=== PATIENT | female | born 1930 | race Hispanic/Latino ===

== ENCOUNTER 2016-12-25 13:33 | Emergency (ER) | payer MEDICARE ==
[2016-12-25 13:34] VITALS: BMI 28.3
[2016-12-25 13:53] VITALS: TEMP 98.8
[2016-12-25] MEDS ORDERED: Ampicillin/Sulbactam 3 GM in Sodium Chloride 0.9% 100 ML IVPB STA (14:21)
--- NOTE | 2016-12-25 14:23 | ED PDOC ---
Arrival/HPI - General Chief Complaint: Trauma Time Seen by Provider: 12/25/16 13:53 Historian: Patient, Family - History of Present Illness Narrative History of Present Illness (Text): 12/25/16 14:10 Real Montoya is an 86 year old female, whose past medical history includes hypertension, hyperlipidemia, and anemia, who presents to the emergency department accompanied with her daughter, with complaints of a possible infection to the left knee and right shoulder pain after a mechanical fall ten days ago. Denies head injury or LOC or neck pain. Days later, the blisters that had appeared in her right knee were popped by the patient with a needle. daughter reports noting signs of infection worsening three days ago. Denies f/c , n/v, shortness of breath, chest pain. PMD: Dr. Kaur Time/Duration: > week (10 days ago) Symptom Onset: Gradual Symptom Course: Worsening Context: Tripped Associated Symptoms (Text): right shoulder pain with movement, right knee pain, left knee bruising, lightheaded Past Medical History - Provider Review Nursing Documentation Reviewed: Yes - Travel History If Yes, travel location?: [place] - Infectious Disease Hx of Infectious Diseases: None - Reproductive Menopause: Yes - Cardiac Hx Cardiac Disorders: Yes (HTN, High Chol) - Hematological/Oncological Hx Anemia: Yes - Musculoskeletal/Rheumatological Hx Falls: No - Psychiatric Hx Depression: No Hx Emotional Abuse: No Hx Physical Abuse: No Hx Substance Use: No - Past Surgical History Past Surgical History: No Previous - Anesthesia Hx Anesthesia: No - Suicidal Assessment Feels Threatened In Home Enviroment: No Family/Social History - Physician Review Nursing Documentation Reviewed: Yes Family/Social History: Other (non-contributory ) Smoking Status: Never Smoked Hx Alcohol Use: No Hx Substance Use: No Allergies/Home Meds Allergies/Adverse Reactions: Allergies No Known Allergies Allergy (Verified 12/25/16 13:53) Home Medications: Home Meds Medication Instructions Recorded Confirmed Alprazolam [Xanax] 0.25 mg PO BID 12/25/16 12/25/16 Benzonatate [Tessalon Perles] 100 mg PO TID 12/25/16 12/25/16 Lisinopril [Zestril] 10 mg PO DAILY 12/25/16 12/25/16 Memantine [Namenda] 10 mg PO DAILY 12/25/16 12/25/16 Metoprolol Succinate [Toprol Xl] 25 mg PO DAILY 12/25/16 12/25/16 amLODIPine [Norvasc] 5 mg PO DAILY 12/25/16 12/25/16 Review of Systems - Review of Systems Constitutional: absent: Fevers Respiratory: absent: SOB, Cough Cardiovascular: absent: Chest Pain Gastrointestinal: absent: Abdominal Pain, Vomiting Musculoskeletal: Other (right shoulder pain and right knee pain with movement ) Skin: Other (bruising on left leg and scattered erythema on right knee) Neurological: Other (lightheaded). absent: Headache, Focal Weakness, Gait Changes Physical Exam Vital Signs Reviewed: Yes Vital Signs Temp Pulse Resp BP Pulse Ox 12/25/16 16:33 50 L 17 157/64 H 98 12/25/16 13:47 98.8 F 56 L 18 140/56 L 99 Temperature: Afebrile Blood Pressure: Hypotensive Pulse: Bradycardic Respiratory Rate: Normal Appearance: Positive for: Well-Appearing, Non-Toxic, Comfortable Pain Distress: None Mental Status: Positive for: Alert and Oriented X 3 - Systems Exam Head: Present: Atraumatic, Normocephalic Pupils: Present: PERRL Neck: Present: Normal Range of Motion. No: MIDLINE TENDERNESS Respiratory/Chest: Present: Clear to Auscultation, Good Air Exchange. No: Respiratory Distress, Accessory Muscle Use Cardiovascular: Present: Regular Rate and Rhythm, Normal S1, S2. No: Murmurs Abdomen: No: Tenderness, Distention, Normal Bowel Sounds, Peritoneal Signs Upper Extremity: Present: Normal ROM (NROM on right shoulder with pain on abduction ) Lower Extremity: Present: Edema (1+ edema that extends down left leg to ankle), NORMAL PULSES, Normal ROM (the pt is able to extend her left knee), Erythema ( 12cm area erythema with scattered abrasion on anterior left leg), Other ( ecchymosis on right anterior knee with NROM) Neurological: Present: GCS=15, Motor Func Grossly Intact, Normal Sensory Function Skin: Present: Warm, Dry Medical Decision Making ED Course and Treatment: 12/25/16 16:16 I disc results w the pt and her daughter and recommended admission for further treatment including IV antibiotics given the extent of her infection. I explained I am concerned it will not be treated as effectively on oral antibiotics and that spread of infection can lead to disability or . However the pt is adamant she does not wish to stay. They will be dc on po abx, follow up w pmd and ortho, and return if worse. - Lab Interpretations Lab Results: 12/25/16 14:30 12/25/16 14:30 Lab Results 12/25/16 14:30: Sodium 143, Potassium 4.8, Chloride 105, Carbon Dioxide 28, Anion Gap 15, BUN 35 H, Creatinine 1.4 H, Est GFR ( Amer) 43, Est GFR ( Non-Af Amer) 35, Random Glucose 93, Calcium 9.6, Total Bilirubin 0.5, AST 58 H, ALT 49, Alkaline Phosphatase 62, Total Protein 7.2, Albumin 3.9, Globulin 3.3, Albumin/Globulin Ratio 1.2 12/25/16 14:30: WBC 7.1, RBC 3.90, Hgb 9.3 L, Hct 29.4 L, MCV 75.4 L, MCH 23.8 L , MCHC 31.6, RDW 14.4, Plt Count 353, MPV 10.1, Gran % 68.2 H, Lymph % (Auto) 20.3 L, [place] % (Auto) 9.3 H, Eos % (Auto) 2.1, Baso % (Auto) 0.1, Gran # 4.83, Lymph # 1.4, [place] # 0.7 H, Eos # 0.2, Baso # 0.01 I have reviewed the lab results: Yes - RAD Interpretation Radiology Orders: 12/25/16 14:20 KNEES BILATERAL [RAD] Stat SHOULDER RIGHT [RAD] Stat Salon Coordinator: Radiologist - Medication Orders Current Medication Orders: Discontinued Medications Ampicillin Sodium/Sulbactam (Sodium 3 gm/ Sodium Chloride) 100 mls @ 100 mls/ hr IVPB STAT STA PRN Reason: Protocol Stop: 12/25/16 15:20 Last Admin: 12/25/16 16:19 Dose: 100 mls/hr eMAR Start Stop Document 12/25/16 16:19 OCS (Rec: 12/25/16 16:20 OCS [id number]) Intravenous Solution Start Date 12/25/16 Start Time 16:00 Ibuprofen (Motrin Tab) 800 mg PO STAT STA Stop: 12/25/16 14:21 Last Admin: 12/25/16 14:43 Dose: 800 mg Trimethoprim/Sulfamethoxazole (Bactrim Ds Tab) 1 tab PO STAT STA PRN Reason: Protocol Stop: 12/25/16 16:17 Last Admin: 12/25/16 16:21 Dose: 1 tab - Scribe Statement The provider has reviewed the documentation as recorded by the Christieibe Mirna Valero Provider Scribe Attestation: All medical record entries made by the Scribe were at my direction and personally dictated by me. I have reviewed the chart and agree that the record accurately reflects my personal performance of the history, physical exam, medical decision making, and the department course for this patient. I have also personally directed, reviewed, and agree with the discharge instructions and disposition. Disposition/Present on Arrival - Present on Arrival Any Indicators Present on Arrival: No History of DVT/PE: No History of Uncontrolled Diabetes: No Urinary Catheter: No History of Decub. Ulcer: No History Surgical Site Infection Following: None - Disposition Have Diagnosis and Disposition been Completed?: Yes Diagnosis: Cellulitis of leg, Quadriceps tendon rupture Disposition: HOME/ ROUTINE Disposition Time: 16:51 Condition: STABLE Discharge Instructions (ExitCare): Cellulitis (ED) Additional Instructions: Please follow up with your doctor and also with the lead generation specialist. Return to the ER for any worsening symptoms, fever, or for any other concerns. Prescriptions: Cephalexin [cephalexin] 500 mg PO QID #40 cap Sulfamethoxazole/Trimethoprim [Bactrim DS 800 mg-160 mg] 1 tab PO BID #20 tab Referrals: Julio C Anders MD [Staff Provider] - Follow up with primary Forms: [employer] (Slovenian)
[2016-12-25 14:54] LABS: ALB/GLOB RATIO 1.2 (1.1-1.8); BILIRUBIN,TOTAL 0.5 mg/dL (0.2-1.3); CALCIUM 9.6 mg/dL (8.4-10.5); POTASSIUM 4.8 mmol/L (3.6-5.0); TOTAL PROTEIN 7.2 g/dL (5.8-8.3)
[2016-12-25 14:59] LABS: BASO # 0.01 K/mm3 (0.0-2.0); BASO % 0.1 % (0.0-3.0); EOS # 0.2 (0.0-0.7); EOS % 2.1 % (1.5-5.0); GRAN # 4.83 (1.4-6.5); GRAN % 68.2 % (50.0-68.0); HEMATOCRIT 29.4 % (36.0-48.0); LYMPH # 1.4 (1.2-3.4); LYMPH % 20.3 % (22.0-35.0); MEAN CELL VOLUME 75.4 fl (80.0-105.0); MEAN CORPUSCULAR HEMOGLOBIN 23.8 pg (25.0-35.0); MEAN CORPUSCULAR HGB CONC 31.6 g/dl (31.0-37.0); MEAN PLATELET VOLUME 10.1 fl (7.0-11.0); MONO # 0.7 (0.1-0.6); MONO % 9.3 % (1.0-6.0); RED CELL DISTRIBUTION WIDTH 14.4 % (11.5-14.5); WHITE BLOOD COUNT 7.1 10^3/ul (4.5-11.0)
--- NOTE | 2016-12-25 16:02 | RAD ---
PROCEDURE: Bilateral Knee Radiographs. HISTORY: fall pain COMPARISON: None. FINDINGS: BONES: Right Knee: Normal. No fracture. Left Knee: Normal. No fracture. JOINTS: Right Knee: Normal. No osteoarthritis. Left knee: Normal. No osteoarthritis. SOFT TISSUES: Right Knee: Normal. Left Knee: There is some separation of the quadriceps tendon from the patella consistent with a tear. Clinical correlation is suggested. There is also soft tissue swelling anterior to the patellar tendon JOINT EFFUSION: Right Knee: None. Left Knee: None. OTHER FINDINGS: None. IMPRESSION: Left knee. There is some separation of the quadriceps tendon from the patella consistent with a tear. Clinical correlation is suggested. There is also soft tissue swelling anterior to the patellar tendon
--- NOTE | 2016-12-25 16:03 | RAD ---
PROCEDURE: Radiographs of the Right Shoulder HISTORY: fall pain COMPARISON: No prior. FINDINGS: BONES: Normal. No fracture. JOINTS: Normal. Glenohumeral and acromioclavicular joints preserved. No osteoarthritis. SOFT TISSUES: Normal. OTHER FINDINGS: None. IMPRESSION: Normal radiographs of the right shoulder.
[2016-12-25] MEDS ORDERED: Tmp-Smz 800 mg-160 mg DS Tab PO STA (16:16)
[2016-12-25 16:34] VITALS: BP 157/64; PULSE 50; RESP 17; O2SAT 98
== END 2016-12-25 16:57 | disposition home or self-care (01) ==
LOC: ED 13:33
DX: L03.116 Cellulitis of left lower limb (principal); S76.112A Strain of left quadriceps muscle, fascia and tendon, initial encounter; W01.0XXA Fall on same level from slipping, tripping and stumbling without subsequent striking against object, initial encounter; E78.5 Hyperlipidemia, unspecified; I10 Essential (primary) hypertension
CPT/HCPCS: 73030; 73560; 80053; 85025; 96374; 99283; J0295

== ENCOUNTER 2017-01-09 18:03 | Inpatient (IN) | payer MEDICARE ==
[2017-01-09 18:05] VITALS: BMI 27.4
[2017-01-09] MEDS ORDERED: guaiFENesin DM 100 mg-10 mg/5 ml UD PO STA (18:25)
[2017-01-09] MEDS ORDERED: cefTRIAXone 1 gm 1 GM/100 ML BAG IVPB STA (18:33)
[2017-01-09] MEDS ORDERED: Azithromycin 500MG/NS 250ml 500 MG/250 ML BAG IVPB STA (18:33)
--- NOTE | 2017-01-09 18:38 | ED PDOC ---
Arrival/HPI - General Chief Complaint: Cough, Cold, Congestion Time Seen by Provider: 01/09/17 18:04 - History of Present Illness Narrative History of Present Illness (Text): CC: Cough, productive x1week, fevers/chills, decreased appetite This patient is an 86yo F who is coming to the hospital wit the above complaints. States she has a cough that will not go away, decreased appetite, and fever/chills. Was treated recently for cellulitis, which the Emergency department physician believed required admission but the patient refused, and took PO antibiotics (Keflex and bactrim). Yesterday, she went to her PMD who gave her Augmentin for her cough. For 2 days, the patient has also had watery diarrhea, non bloody, 6 times per day since she has been on the antibiotics. The patient denies any urinary frequency/urgency. Admits to fevers/chills, and decreased appetite. Denies shortness of breath, abdominal pain, dysuria/freq/urg , or lower extremity swelling. Past Medical History - Provider Review Nursing Documentation Reviewed: Yes - Travel History Have you recently traveled outside [place] w/in the past 3 mons?: No - Past History Past History: No Previous - Infectious Disease Hx of Infectious Diseases: None - Cardiac Hx Cardiac Disorders: Yes (HTN, High Chol) Hx Hypertension: Yes - Pulmonary Hx Respiratory Disorders: Yes Hx Pneumonia: Yes - Neurological Hx Neurological Disorder: No - HEENT Hx HEENT Disorder: No - Renal Hx Renal Disorder: No - Endocrine/Metabolic Hx Endocrine Disorders: No - Hematological/Oncological Hx Anemia: Yes Hx Blood Transfusions: No - Integumentary Hx Dermatological Disorder: No - Musculoskeletal/Rheumatological Hx Musculoskeletal Disorders: Yes Hx Arthritis: Yes Hx Falls: No - Gastrointestinal Hx Gastrointestinal Disorders: No - Genitourinary/Gynecological Hx Genitourinary Disorders: No - Psychiatric Hx Depression: No Hx Emotional Abuse: No Hx Physical Abuse: No Hx Substance Use: No - Past Surgical History Past Surgical History: No Previous - Anesthesia Hx Anesthesia: No - Suicidal Assessment Feels Threatened In Home Enviroment: No Family/Social History - Physician Review Nursing Documentation Reviewed: Yes Family/Social History: No Known Family HX Smoking Status: Never Smoked Hx Alcohol Use: No Hx Substance Use: No Allergies/Home Meds Allergies/Adverse Reactions: Allergies No Known Allergies Allergy (Verified 01/09/17 18:07) Home Medications: Home Meds Medication Instructions Recorded Confirmed Alprazolam [Xanax] 0.25 mg PO BID 12/25/16 01/09/17 Benzonatate [Tessalon Perles] 100 mg PO TID 12/25/16 01/09/17 Lisinopril [Zestril] 10 mg PO DAILY 12/25/16 01/09/17 Memantine [Namenda] 10 mg PO DAILY 12/25/16 01/09/17 Metoprolol Succinate [Toprol Xl] 25 mg PO DAILY 12/25/16 01/09/17 amLODIPine [Norvasc] 5 mg PO DAILY 12/25/16 01/09/17 Amoxicillin/Clavulanate [Augmentin 1 tab PO BID 01/09/17 01/09/17 875 MG-125 MG Tab] Atorvastatin [Lipitor] 10 mg PO DAILY 01/09/17 01/09/17 hydroCHLOROthiazide [Hydrodiuril] 25 g PO DAILY 01/09/17 01/09/17 Review of Systems - Review of Systems Constitutional: Fatigue. absent: Weight Change Eyes: absent: Vision Changes, Photophobia ENT: absent: Hearing Changes, Tinnitus Respiratory: Cough, Sputum. absent: SOB Cardiovascular: absent: Chest Pain, Palpitations Gastrointestinal: absent: Abdominal Pain, Stool Changes Genitourinary Female: absent: Dysuria, Frequency Musculoskeletal: absent: Arthralgias, Back Pain Skin: absent: Rash, Pruritis, Skin Lesions Neurological: absent: Headache, Dizziness Endocrine: absent: Diaphoresis, Polyuria Hemo/Lymphatic: absent: Adenopathy, Easy Bleeding Psychiatric: absent: Anxiety, Depression Physical Exam Vital Signs Temp Pulse Resp BP Pulse Ox 01/09/17 18:04 97.8 F 70 19 185/71 H 98 Temperature: Afebrile Blood Pressure: Hypertensive Pulse: Regular Respiratory Rate: Normal Appearance: Positive for: Well-Appearing, Non-Toxic, Comfortable Pain Distress: None Mental Status: Positive for: Alert and Oriented X 3 - Systems Exam Head: Present: Atraumatic Pupils: Present: PERRL Extroacular Muscles: Present: EOMI Conjunctiva: Present: Normal Mouth: Present: Moist Mucous Membranes Pharnyx: No: ERYTHEMA, EXUDATE Nose (External): Present: Atraumatic Neck: Present: Normal Range of Motion. No: Meningeal Signs Respiratory/Chest: Present: Good Air Exchange, Rales. No: Clear to Auscultation , Respiratory Distress, Accessory Muscle Use, Retracting, Rhonchi, Tachypneic Cardiovascular: Present: Regular Rate and Rhythm. No: Murmurs Abdomen: No: Tenderness, Distention, Guarding Back: Present: Normal Inspection. No: CVA Tenderness Upper Extremity: Present: Normal Inspection. No: Cyanosis, Edema Lower Extremity: Present: Normal Inspection Neurological: Present: GCS=15, CN II-XII Intact, Speech Normal Skin: Present: Warm Psychiatric: Present: Alert, Normal Insight Medical Decision Making ED Course and Treatment: Likely PNA as per X-Ray Patient has been on outpatient antibiotics; patient is not getting better CBC CMP Urinalys Chest X-Ray VBG Lactate Blood Cultures Ceftriaxone and Azithro for CAP Likely admission Dispo and Reassess 01/09/17 19:12 Elevated BUN K 6.1; gave kayhexalate Brush And Broom Clipper 2.2; elevated from 1.2 on previous admission; SETH 01/09/17 19:13 Anemia; 9.8; stable from previous No WBC however monocytosis 01/09/17 19:14 01/09/17 19:17 Pnemonia severity index recommends inpatient admission; 108 score with 8-10% of mortality patient is refusing admission to the hospital 01/09/17 19:23 had another conversation with patient patient is refusing admission will give doxycycline for atypical coverage in addition to augmentin explained to patient the risks and benefits with daughter at bedside including mortality risk patient will AMA with abx encouraged to follow up closely with PMD - Lab Interpretations Lab Results: 01/09/17 18:30 01/09/17 18:30 Lab Results 01/09/17 18:30: Sodium 143, Potassium Pending, Chloride 110 H, Carbon Dioxide 24 , Anion Gap 15, BUN 34 H, Creatinine 2.2 H, Est GFR ( Amer) 25, Est GFR ( Non-Af Amer) 21, Random Glucose 112 H, Calcium 9.7, Total Bilirubin 0.5, AST 29 , ALT 30, Alkaline Phosphatase 71, Total Protein 7.6, Albumin 4.3, Globulin 3.4 , Albumin/Globulin Ratio 1.3 01/09/17 18:30: WBC 6.3, RBC 4.10, Hgb 9.8 L, Hct 31.2 L, MCV 76.1 L, MCH 23.9 L , MCHC 31.4, RDW 15.6 H, Plt Count 328, MPV 10.8, Gran % 63.9, Lymph % (Auto) 21.9 L, [place] % (Auto) 9.4 H, Eos % (Auto) 4.6, Baso % (Auto) 0.2, Gran # 4.04, Lymph # 1.4, [place] # 0.6, Eos # 0.3, Baso # 0.01 I have reviewed the lab results: Yes - RAD Interpretation Radiology Orders: 01/09/17 18:25 CHEST PORTABLE [RAD] Stat - Medication Orders Current Medication Orders: Azithromycin (Zithromax 500mg In Ns) 500 mg in 250 mls @ 167 mls/hr IVPB STAT STA PRN Reason: Protocol Stop: 01/09/17 20:02 Discontinued Medications Acetaminophen (Tylenol 325mg Tab) 650 mg PO STAT STA Stop: 01/09/17 18:26 Last Admin: 01/09/17 18:45 Dose: 650 mg MAR Pain/Vitals Document 01/09/17 18:45 IT (Rec: 01/09/17 18:45 IT [email or web address]) Pain Reassessment Is This A Pain ReAssessment? No Sleep Is patient sleeping during reassessment? No Presence of Pain Presence of Pain Yes Pain Scale Used Pain Scale Used Numeric Location Left, Right or Bilateral Left Pain Location Body Site Knee Guaifenesin/Dextromethorphan (Robitussin Dm) 5 ml PO ONCE STA Stop: 01/09/17 18:26 Last Admin: 01/09/17 18:45 Dose: 5 ml Ceftriaxone Sodium (Rocephin 1 Gram Ivpb) 1 gm in 100 mls @ 200 mls/hr IVPB STAT STA PRN Reason: Protocol Stop: 01/09/17 19:02 Last Admin: 01/09/17 19:14 Dose: 200 mls/hr Sodium Polystyrene Sulfonate (Kayexalate Susp) 30 gm PO STAT STA Stop: 01/09/17 19:12 Disposition/Present on Arrival - Present on Arrival Any Indicators Present on Arrival: Yes History of DVT/PE: No History of Uncontrolled Diabetes: No Urinary Catheter: No History of Decub. Ulcer: No History Surgical Site Infection Following: None - Disposition Have Diagnosis and Disposition been Completed?: Yes Diagnosis: CAP (community acquired pneumonia) Disposition: AGAINST MEDICAL ADVICE Disposition Time: 19:31 Patient Plan: Admission Condition: FAIR Forms: [employer] ([place]bek)
[2017-01-09 19:06] LABS: ALB/GLOB RATIO 1.3 (1.1-1.8); BILIRUBIN,TOTAL 0.5 mg/dL (0.2-1.3); CALCIUM 9.7 mg/dL (8.4-10.5); TOTAL PROTEIN 7.6 g/dL (5.8-8.3)
[2017-01-09 19:08] LABS: BASO # 0.01 K/mm3 (0.0-2.0); BASO % 0.2 % (0.0-3.0); EOS # 0.3 (0.0-0.7); EOS % 4.6 % (1.5-5.0); GRAN # 4.04 (1.4-6.5); GRAN % 63.9 % (50.0-68.0); HEMATOCRIT 31.2 % (36.0-48.0); LYMPH # 1.4 (1.2-3.4); LYMPH % 21.9 % (22.0-35.0); MEAN CELL VOLUME 76.1 fl (80.0-105.0); MEAN CORPUSCULAR HEMOGLOBIN 23.9 pg (25.0-35.0); MEAN CORPUSCULAR HGB CONC 31.4 g/dl (31.0-37.0); MEAN PLATELET VOLUME 10.8 fl (7.0-11.0); MONO # 0.6 (0.1-0.6); MONO % 9.4 % (1.0-6.0); RED CELL DISTRIBUTION WIDTH 15.6 % (11.5-14.5); WHITE BLOOD COUNT 6.3 10^3/ul (4.5-11.0)
[2017-01-09] MEDS ORDERED: Sod Polystyrene Sulf 15 gm/60 ml Susp PO STA ×2 (19:11→21:38)
[2017-01-09 19:12] LABS: VENOUS BLOOD GAS BASE EXCESS -1.5 mmol/L (0.0-2.0); VENOUS BLOOD PH 7.33 (7.32-7.43)
[2017-01-09 19:39] LABS: POTASSIUM 6.1 mmol/L (3.6-5.0)
--- NOTE | 2017-01-09 22:30 | CP.PCM.HP ---
<Bryan Silverman - Last Filed: 01/09/17 23:34> History of Present Illness - History of Present Illness History of Present Illness: This is a a 86 year old female with a past medical history of hypertension and hyperlipidemia who comes in complaining of shortness of breath and cough for the past 3 days. The patient says the cough has gotten worse over the past day. The patient denies any alleviating or modifying factors. The patient is also reporting diarrhea that started in conjunction with the symptoms. The patient denies any chest pain, syncopal episodes, lightheadedness ,dizziness, headaches, chills, nausea, vomiting, constipation, or any other complaints. PMD: Dr. Coles Past medical history: see HPI Medications: Lipitor, HCTZ, Norvasc,Namenda, Zestril, Xanax Past surgical history: Denies Allergies: NKDA Social history: Denies any alcohol or smoking. Denies illicit drug use. Present on Admission - Present on Admission Any Indicators Present on Admission: No Review of Systems - Constitutional Constitutional: Fever. absent: Headache, Night Sweats, Snoring, Weakness - EENT Eyes: absent: Blurred Vision, Diplopia, Discharge, Loss of Peripheral Vision, Requires Corrective Lenses Ears: absent: Ear Discharge, Disequilibrium, Dizziness Nose/Mouth/Throat: Sore Throat. absent: Nasal Congestion, Nasal Trauma, Nose Pain, Bleeding Gums, Tongue Swelling - Cardiovascular Cardiovascular: absent: Chest Pain, Claudication, Diaphoresis, Irregular Heart Rhythm, Leg Edema, Orthopnea, Palpitations - Respiratory Respiratory: Cough, Chest Congestion, Change in Mucous Color - Gastrointestinal Gastrointestinal: Diarrhea. absent: Belching, Excessive Flatus, Fecal Incontinence, Melena, Nausea - Musculoskeletal Musculoskeletal: absent: Arthralgias, Atrophy - Integumentary Integumentary: absent: Alopecia, Bleeding Lesions, Changing Lesions, Lesions, Swelling - Neurological Neurological: absent: Abnormal Hearing, Dizziness, Numbness, Lack of Coordination, Loss of Vision, Syncope, Tremor, Vertigo, Weakness - Psychiatric Psychiatric: Change in Appetite. absent: Behavioral Changes, Depression - Endocrine Endocrine: absent: Polydipsia, Polyphagia, Polyuria Past Patient History - Infectious Disease Hx of Infectious Diseases: None - Past Social History Smoking Status: Never Smoked - CARDIAC Hx Cardiac Disorders: Yes (HTN, High Chol) Hx Hypertension: Yes - PULMONARY Hx Respiratory Disorders: Yes Hx Pneumonia: Yes - NEUROLOGICAL Hx Neurological Disorder: No - HEENT Hx HEENT Problems: No - RENAL Hx Chronic Kidney Disease: No - ENDOCRINE/METABOLIC Hx Endocrine Disorders: No - HEMATOLOGICAL/ONCOLOGICAL Hx Anemia: Yes Hx Blood Transfusions: No - INTEGUMENTARY Hx Dermatological Problems: No - MUSCULOSKELETAL/RHEUMATOLOGICAL Hx Musculoskeletal Disorders: Yes Hx Arthritis: Yes Hx Falls: No - GASTROINTESTINAL Hx Gastrointestinal Disorders: No - GENITOURINARY/GYNECOLOGICAL Hx Genitourinary Disorders: No - PSYCHIATRIC Hx Depression: No Hx Emotional Abuse: No Hx Physical Abuse: No Hx Substance Use: No - SURGICAL HISTORY Hx Surgeries: No - ANESTHESIA Hx Anesthesia: No Meds Home Medications: Home Medication List Medication Instructions Recorded Confirmed Type Doxycycline Hyclate 100 mg PO BID 7 Days #14 capsule 01/09/17 Rx Allergies/Adverse Reactions: Allergies Allergy/AdvReac Type Severity Reaction Status Date / Time No Known Allergies Allergy Verified 01/09/17 18:07 Physical Exam - Head Exam Head Exam: ATRAUMATIC, NORMAL INSPECTION, NORMOCEPHALIC - Eye Exam Eye Exam: EOMI, Normal appearance, PERRL. absent: Periorbital tenderness Pupil Exam: NORMAL ACCOMODATION, PERRL. absent: Irregular, Unequal - ENT Exam ENT Exam: Mucous Membranes Moist, Normal Exam, Normal Oropharynx. absent: TM's Normal Bilaterally - Neck Exam Neck exam: Positive for: Normal Inspection. Negative for: Lymphadenopathy, Meningismus, Thyromegaly - Respiratory Exam Respiratory Exam: Rhonchi, Wheezes, NORMAL BREATHING PATTERN. absent: Clear to Auscultation Bilateral - Cardiovascular Exam Cardiovascular Exam: REGULAR RHYTHM, +S1, +S2. absent: Gallop, Rubs - GI/Abdominal Exam GI & Abdominal Exam: Normal Bowel Sounds, Soft. absent: Hypoactive Bowel Sounds , Organomegaly, Tenderness - Extremities Exam Extremities exam: Positive for: full ROM, normal inspection. Negative for: joint swelling, pedal edema, tenderness - Back Exam Back exam: NORMAL INSPECTION, paraspinal tenderness. absent: CVA tenderness (L) , CVA tenderness (R) - Neurological Exam Neurological exam: Alert, CN II-XII Intact, Normal Gait, Oriented x3 - Psychiatric Exam Psychiatric exam: Normal Affect, Normal Mood - Skin Skin Exam: Dry, Intact, Normal Color Results - Vital Signs Recent Vital Signs: Last Vital Signs Temp 97.8 F 01/09/17 18:04 Pulse 70 01/09/17 18:04 Resp 19 01/09/17 18:04 BP 185/71 H 01/09/17 18:04 Pulse Ox 98 01/09/17 18:04 - Labs Result Diagrams: 01/09/17 18:30 01/09/17 18:30 Assessment & Plan - Assessment and Plan (Free Text) Assessment: This is a 86 year old female with a past medical history of hypertension and hyperlipidemia who is being admitted for pneumonia. Plan: 1.Commuinty acquired pneumonia -CURB score of 2 upon admission. Correlates with a 9.2 % mortality risk. -CXR suggestive of infiltrate. -Ceftriaxaone 1gIV Q24h and Azithromycin 500 mg IVq24H. -Tylenol PRN for fever. -Cepacol lozenges for sore throat. 2. SETH -Creatinine upon admission 2.2. Previous admission it was 1.1. IV fluids NS @ 75mls/hr. -Nephrology consulted. Will f/u with rec's. 3.h/o Hypertension -continue home meds. 4.h/o of Hyperlipidemiea -continue home meds. GI ppx -Protonix DVT ppx -SCD's <Umang Torres - Last Filed: 01/11/17 19:26> Results - Vital Signs Recent Vital Signs: Last Vital Signs Temp 97.4 F L 01/11/17 12:00 Pulse 80 01/11/17 14:00 Resp 18 01/11/17 12:00 BP 114/62 01/11/17 12:00 Pulse Ox 98 01/11/17 06:00 - Labs Result Diagrams: 01/11/17 06:15 01/11/17 06:15 Labs: Laboratory Results - last 24 hr 01/11/17 01/11/17 01/11/17 06:15 06:15 07:30 WBC 5.9 RBC 3.83 Hgb 9.0 L Hct 29.2 L MCV 76.2 L MCH 23.5 L MCHC 30.8 L RDW 15.5 H Plt Count 289 MPV 10.1 Gran % 54.3 Lymph % (Auto) 29.9 [place] % (Auto) 8.9 H Eos % (Auto) 6.7 H Baso % (Auto) 0.2 Gran # 3.18 Lymph # 1.8 [place] # 0.5 Eos # 0.4 Baso # 0.01 Sodium 142 Potassium 5.2 H Chloride 111 H Carbon Dioxide 24 Anion Gap 12 BUN 19 Creatinine 1.4 H Est GFR ( Amer) 43 Est GFR (Non-Af Amer) 35 Random Glucose 95 Calcium 8.9 Iron TIBC % Saturation Ferritin Total Bilirubin 0.4 AST 25 ALT 28 Alkaline Phosphatase 59 Total Protein 5.9 Albumin 3.0 Globulin 2.8 Albumin/Globulin Ratio 1.1 Procalcitonin < 0.05 L 01/11/17 01/11/17 07:58 07:58 WBC RBC Hgb Hct MCV MCH MCHC RDW Plt Count MPV Gran % Lymph % (Auto) [place] % (Auto) Eos % (Auto) Baso % (Auto) Gran # Lymph # [place] # Eos # Baso # Sodium Potassium Chloride Carbon Dioxide Anion Gap BUN Creatinine Est GFR ( Amer) Est GFR (Non-Af Amer) Random Glucose Calcium Iron 59 TIBC 217 L % Saturation 27 Ferritin 89.5 Total Bilirubin AST ALT Alkaline Phosphatase Total Protein Albumin Globulin Albumin/Globulin Ratio Procalcitonin Attending/Attestation - Attestation I have personally seen and examined this patient.: Yes I have fully participated in the care of the patient.: Yes I have reviewed all pertinent clinical information: Yes Notes (Text): 01/11/17 19:25 Patient was seen when she was in the ER. Medical record was reviewed. Agree with history , physical examination, assessment and plan.
[2017-01-10] MEDS: Sodium Chloride 0.9% 500 ML IV SCH ×2 (05:18→05:20)
[2017-01-10 06:45] LABS: BASO # 0.01 K/mm3 (0.0-2.0); BASO % 0.2 % (0.0-3.0); EOS # 0.3 (0.0-0.7); EOS % 4.8 % (1.5-5.0); GRAN # 3.22 (1.4-6.5); GRAN % 58.9 % (50.0-68.0); HEMATOCRIT 31.1 % (36.0-48.0); LYMPH # 1.5 (1.2-3.4); LYMPH % 27.5 % (22.0-35.0); MEAN CELL VOLUME 76.4 fl (80.0-105.0); MEAN CORPUSCULAR HEMOGLOBIN 23.8 pg (25.0-35.0); MEAN CORPUSCULAR HGB CONC 31.2 g/dl (31.0-37.0); MEAN PLATELET VOLUME 10.3 fl (7.0-11.0); MONO # 0.5 (0.1-0.6); MONO % 8.6 % (1.0-6.0); RED CELL DISTRIBUTION WIDTH 15.3 % (11.5-14.5); WHITE BLOOD COUNT 5.5 10^3/ul (4.5-11.0)
[2017-01-10 07:24] LABS: ALB/GLOB RATIO 1.2 (1.1-1.8); BILIRUBIN,TOTAL 0.5 mg/dL (0.2-1.3); CALCIUM 9.5 mg/dL (8.4-10.5); POTASSIUM 5.3 mmol/L (3.6-5.0); TOTAL PROTEIN 6.6 g/dL (5.8-8.3)
[2017-01-10] MEDS ORDERED: Dextrose 5%/0.9% NS 1,000 ML IV SCH (08:00)
[2017-01-10 09:12] LABS: PH,URINE 7.5 (4.7-8.0); URINE BILIRUBIN NEGATIVE (NEGATIVE); URINE BLOOD SMALL (NEGATIVE); URINE GLUCOSE (UA) NEGATIVE (NEGATIVE); URINE KETONE NEGATIVE (NEGATIVE); URINE LEUKOCYTE ESTERASE TRACE Leu/uL (NEGATIVE); URINE PROTEIN NEGATIVE mg/dL (<30 mg/dL); URINE UROBILINOGEN 0.2 E.U./dL (<1 E.U./dL)
[2017-01-10 09:14] LABS: URINE APPEARANCE CLEAR (CLEAR); URINE COLOR YELLOW (YELLOW)
[2017-01-10 09:29] LABS: URINE BACTERIA FEW (NEG); URINE EPITHELIAL CELLS 0 - 2 /hpf (0-5); URINE RBC 0 - 2 /hpf (0-2)
[2017-01-10] MEDS ORDERED: Azithromycin 500MG/NS 250ml 500 MG/250 ML BAG IVPB SCH (10:00)
[2017-01-10] MEDS: Metoprolol Succinate 25 mg XL Tab PO SCH (10:11)
[2017-01-10] MEDS: cefTRIAXone 1 gm 1 GM/100 ML BAG IVPB SCH (10:18)
--- NOTE | 2017-01-10 11:03 | RAD ---
HISTORY: cough COMPARISON: 04/10/2012 FINDINGS: LUNGS: No active pulmonary disease. PLEURA: No significant pleural effusion identified, no pneumothorax apparent. CARDIOVASCULAR: Normal. OSSEOUS STRUCTURES: No significant abnormalities. VISUALIZED UPPER ABDOMEN: Normal. OTHER FINDINGS: None. IMPRESSION: No active disease.
--- NOTE | 2017-01-10 13:59 | CON ---
DATE: 01/10/2017 REASON FOR CONSULTATION: Hyperkalemia and acute kidney injury. REFERRING PHYSICIAN: Dr. Mg. CHIEF COMPLAINT AND HISTORY OF PRESENT ILLNESS: This is an 86-year-old female who is coming in to the hospital with cough, which is productive. She has been having decrease in her appetite. The patient was admitted to the hospital for community-acquired pneumonia. The patient had a potassium that was elevated at 6.1. Her creatinine was 2.2. She had baseline creatinine that is 1.4 on 12/25/2016. She has been having shortness of breath and cough for the past 3 days. She states that the cough has become worse. I was able to get information from the patient, from the medical record, and talking to the staff. She denies any chest pain. No lightheadedness or dizziness. No headaches or nausea. ALLERGIES: NO KNOWN DRUG ALLERGIES. HOME MEDICATIONS: Lipitor, hydrochlorothiazide, Norvasc, Namenda, Zestril, Xanax. PAST MEDICAL HISTORY: Dyslipidemia, dementia, hypertension. The patient does not speak fluent [place]. SOCIAL HISTORY: The patient has no history of smoking or alcohol or drug use. PHYSICAL EXAMINATION: VITAL SIGNS: Temperature is 98.1, pulse is 73, blood pressure 171/71, respiration is 19, O2 saturation is 97%. GENERAL: The patient lying in bed, uncomfortable, and in no acute distress. HEENT: Atraumatic and normocephalic. Anicteric sclerae. Moist mucosa. [place] conjunctivae. No oral lesions. NECK: No JVD, anterior and posterior adenopathy, thyromegaly, or bruits. CARDIOVASCULAR: S1 and S2 regular. No murmur, rubs, or gallop. LUNGS: Clear to auscultation bilaterally. No wheezes, rales, or rhonchi. ABDOMEN: Bowel sounds are positive. Soft, nontender and nondistended. No hepatosplenomegaly. No rebound and no guarding EXTREMITIES: No cyanosis, clubbing, or edema. NEUROLOGIC: No facial asymmetry. Tongue is midline. No uvula deviation. Power is 5/5 upper extremity and lower extremity. Sensation intact in upper extremity and lower extremity. PSYCHIATRIC: She is awake, alert and oriented. No hallucinations. GENITOURINARY: No CVA tenderness. VASCULAR: 2+ pulses in the carotid pulses and pedal pulses. SKIN: No erythema or nodules. SPINE: Shows normal curvature. EXTREMITIES: No Cyanosis and clubbing, no edema. LABORATORY DATA: White count is 6.3, hemoglobin is 9.8, platelet count is 328, pH is 7.3, PCO2 of 47, lactate is 0.9, bicarb is 24, potassium is 6.1, creatinine is 2.2. Chest x-ray, lungs are clear, no infiltrates that was reviewed by me. ASSESSMENT: 1. Hyperkalemia. 2. Acute kidney injury. 3. Dyslipidemia. 4. Hypertension. PLAN: The patient is currently comfortable. She was found to have acute kidney injury. She was started on IV fluids. Her repeat creatinine shows that it is 2.0. She was also on lisinopril and beta blockers, which in cause hyperkalemia. She was given calcium gluconate and sodium polystyrene sulfonate for her hyperkalemia. Her potassium is improved, it is 5.3. The patient's lisinopril has been discontinued. The patient's blood pressure is significantly elevated. I will increase the patient's Norvasc to 10 mg. I will also place her on clonidine for her blood pressure until her kidney function improves. She did not have a UA previously. In reviewing her notes, I did not find the UA as well. She did have creatinine that was 1.1 in 03/2012. We will repeat the patient's blood work tomorrow. The patient should continue IV fluids. The patient is on a heart-healthy diet. Continue to follow closely. I reviewed the patient's EKG that shows sinus rhythm, normal axis, no ST changes, no T wave abnormalities. Thank you for allowing me to participate in care of your patient. We will continue to follow. Jorge Heredia MD
--- NOTE | 2017-01-10 14:21 | CP.PCM.DIS ---
Provider - Provider Date of Admission: 01/09/17 20:36 Attending physician: Ino Mg MD Primary care physician: PMD: Maria D Marinelli Consults: Nephrology: Dr. Heredia Time Spent in preparation of Discharge (in minutes): 25 Hospital Course - Lab Results Lab Results: Micro Results 01/09/17 22:16 Stool C. difficile Antigen & Toxin A,B (M - Final Most Recent Lab Values WBC 5.5 10^3/ul (4.5-11.0) 01/10/17 06:20 RBC 4.07 10^6/uL (3.5-6.1) 01/10/17 06:20 Hgb 9.7 g/dL (12.0-16.0) L 01/10/17 06:20 Hct 31.1 % (36.0-48.0) L 01/10/17 06:20 MCV 76.4 fl (80.0-105.0) L 01/10/17 06:20 MCH 23.8 pg (25.0-35.0) L 01/10/17 06:20 MCHC 31.2 g/dl (31.0-37.0) 01/10/17 06:20 RDW 15.3 % (11.5-14.5) H 01/10/17 06:20 Plt Count 329 10^3/uL (120.0-450.0) 01/10/17 06:20 MPV 10.3 fl (7.0-11.0) 01/10/17 06:20 Gran % 58.9 % (50.0-68.0) 01/10/17 06:20 Lymph % (Auto) 27.5 % (22.0-35.0) 01/10/17 06:20 [place] % (Auto) 8.6 % (1.0-6.0) H 01/10/17 06:20 Eos % (Auto) 4.8 % (1.5-5.0) 01/10/17 06:20 Baso % (Auto) 0.2 % (0.0-3.0) 01/10/17 06:20 Gran # 3.22 (1.4-6.5) 01/10/17 06:20 Lymph # 1.5 (1.2-3.4) 01/10/17 06:20 [place] # 0.5 (0.1-0.6) 01/10/17 06:20 Eos # 0.3 (0.0-0.7) 01/10/17 06:20 Baso # 0.01 K/mm3 (0.0-2.0) 01/10/17 06:20 pO2 45 mm/Hg (30-55) 01/09/17 19:08 VBG pH 7.33 (7.32-7.43) 01/09/17 19:08 VBG pCO2 47.0 (40-60) 01/09/17 19:08 VBG HCO3 24.8 mmol/l (21-28) 01/09/17 19:08 VBG Total CO2 26.2 mmol.L (22-28) 01/09/17 19:08 VBG O2 Sat (Calc) 85.1 % (40-65) H 01/09/17 19:08 VBG Base Excess -1.5 mmol/L (0.0-2.0) L 01/09/17 19:08 VBG Potassium 5.8 mmol/L (3.6-5.2) H 01/09/17 19:08 Sodium 140.0 mmol/L (132-148) 01/09/17 19:08 Chloride 112.0 mmol/L (98-107) H 01/09/17 19:08 Glucose 109 mg/dl (65-105) H 01/09/17 19:08 Lactate 0.9 mmol/L (0.7-2.1) 01/09/17 19:08 FiO2 21.0 % 01/09/17 19:08 Sodium 144 mmol/L (132-148) 01/10/17 06:20 Potassium 5.3 mmol/L (3.6-5.0) H 01/10/17 06:20 Chloride 113 mmol/L (98-107) H 01/10/17 06:20 Carbon Dioxide 23 mmol/L (21-33) 01/10/17 06:20 Anion Gap 13 (10-20) 01/10/17 06:20 BUN 30 mg/dL (7-21) H 01/10/17 06:20 Creatinine 2.0 mg/dL (0.7-1.2) H 01/10/17 06:20 Est GFR ( Amer) 28 01/10/17 06:20 Est GFR (Non-Af Amer) 24 01/10/17 06:20 Random Glucose 88 mg/dL (70-110) 01/10/17 06:20 Calcium 9.5 mg/dL (8.4-10.5) 01/10/17 06:20 Total Bilirubin 0.5 mg/dL (0.2-1.3) 01/10/17 06:20 AST 30 U/L (14-36) 01/10/17 06:20 ALT 30 U/L (7-56) 01/10/17 06:20 Alkaline Phosphatase 70 U/L (38-126) 01/10/17 06:20 Total Protein 6.6 g/dL (5.8-8.3) 01/10/17 06:20 Albumin 3.5 g/dL (3.0-4.8) 01/10/17 06:20 Globulin 3.0 gm/dL 01/10/17 06:20 Albumin/Globulin Ratio 1.2 (1.1-1.8) 01/10/17 06:20 Venous Blood Potassium 5.8 mmol/L (3.6-5.2) H 01/09/17 19:08 Urine Color Yellow (YELLOW) 01/10/17 08:41 Urine Appearance Clear (CLEAR) 01/10/17 08:41 Urine pH 7.5 (4.7-8.0) 01/10/17 08:41 Ur Specific [place] 1.015 (1.005-1.035) 01/10/17 08:41 Urine Protein Negative mg/dL (<30 mg/dL) 01/10/17 08:41 Urine Glucose (UA) Negative mg/dL (NEGATIVE) 01/10/17 08:41 Urine Ketones Negative mg/dL (NEGATIVE) 01/10/17 08:41 Urine Blood Small (NEGATIVE) H 01/10/17 08:41 Urine Nitrate Negative (NEGATIVE) 01/10/17 08:41 Urine Bilirubin Negative (NEGATIVE) 01/10/17 08:41 Urine Urobilinogen 0.2 E.U./dL (<1 E.U./dL) 01/10/17 08:41 Ur Leukocyte Esterase Trace [place]/uL (NEGATIVE) H 01/10/17 08:41 Urine RBC 0 - 2 /hpf (0-2) 01/10/17 08:41 Urine WBC 5 - 10 /hpf (0-6) 01/10/17 08:41 Ur Epithelial Cells 0 - 2 /hpf (0-5) 01/10/17 08:41 Urine Bacteria Few (NEG) 01/10/17 08:41 Ur Random Creatinine 71 mg/dL 01/10/17 08:41 U Random Total Protein 10 mg/L 01/10/17 08:41 Influenza Typ A,B (EIA) Negative for flu a/b (NEGATIVE) 01/09/17 19:07 Ur L.pneumophila Ag Negative (NEGATIVE) 01/10/17 08:18 - Hospital Course Hospital Course: Patient is an 86 year old female with past medical history that includes hypertension, hyperlipidemia, anemia, degenerative disc disease, possible mild cognitive disorder as per medication review and history of atrial fibrillation currently not on anticoagulation who presented to the [facility] complaining of a 4 to 5 day history of productive cough. Patient was evaluated in the emergency department and found to have elevated potassium and creatinine. The patient was admitted for further work up of her cough with suspected community acquired pneumonia and SETH. Chest x-ray was done in the ED showing no significant pleural effusion or active pulmonary disease. EKG was preformed showing normal sinus rhythm with no acute ST segment elevations or depressions. Nephrology with Dr. Jackson was consulted and evaluated the patient. The patient, who is primarily [place] speaking, was evaluated on the general medical floor the following morning of her admission with family at bedside. The patient expressed desire to leave against medical office. With the use of a medical records manager(Name: Maria D, ID#[id number]) Patient was evaluated to be alert and oriented x3 with appropriate comprehension and understanding. The patient was educated on the risks and potential harm to her health if she did leave against medical advice and was understanding. Patient was instructed to follow up with her primary medical doctor and to hold nephro damaging medications. Patient understood. - Date & Time of H&P Date of H&P: 01/09/17 Time of H&P: 22:30 Discharge Exam - Head Exam Head Exam: ATRAUMATIC, NORMAL INSPECTION, NORMOCEPHALIC - Eye Exam Eye Exam: EOMI, PERRL Pupil Exam: PERRL - Neck Exam Neck exam: Full Rom - Respiratory Exam Respiratory Exam: Rhonchi, NORMAL BREATHING PATTERN. absent: Accessory Muscle Use, Chest Wall Tenderness, Wheezes - Cardiovascular Exam Cardiovascular Exam: REGULAR RHYTHM, +S1, +S2 - GI/Abdominal Exam GI & Abdominal Exam: Normal Bowel Sounds, Unremarkable. absent: Firm, Guarding , Rigid - Extremities Exam Extremities exam: full ROM Additional comments: trace edema bilateral - Back Exam Back exam: NORMAL INSPECTION - Neurological Exam Neurological exam: Alert, Oriented x3 - Psychiatric Exam Psychiatric exam: Normal Affect, Normal Mood - Skin Skin Exam: Dry, Normal Color Additional comments: patient noted to have bandages over left knee covering previous cellulitis Discharge Plan - Follow Up Plan Condition: FAIR Disposition: AGAINST MEDICAL ADVICE Additional Instructions: 1. Follow up with your primary medical doctor with in one week 2. Please take your medications as instructed. Hold CALLY-inhibitor and hydrochlorothiazide. 3. Stay hydrated with appropriate oral intake of fluids and eat a heart healthy diet 4. Return to the emergency department if your symptoms worsen or return
--- NOTE | 2017-01-10 17:06 | CARD ---
APPROVED REPORT EKG Measurement Heart [id number] <Conclusion> Normal sinus rhythm with sinus arrhythmia Normal ECG
[2017-01-11 00:05] VITALS: RESP 18
[2017-01-11 06:38] LABS: BASO # 0.01 K/mm3 (0.0-2.0); BASO % 0.2 % (0.0-3.0); EOS # 0.4 (0.0-0.7); EOS % 6.7 % (1.5-5.0); GRAN # 3.18 (1.4-6.5); GRAN % 54.3 % (50.0-68.0); HEMATOCRIT 29.2 % (36.0-48.0); LYMPH # 1.8 (1.2-3.4); LYMPH % 29.9 % (22.0-35.0); MEAN CELL VOLUME 76.2 fl (80.0-105.0); MEAN CORPUSCULAR HEMOGLOBIN 23.5 pg (25.0-35.0); MEAN CORPUSCULAR HGB CONC 30.8 g/dl (31.0-37.0); MEAN PLATELET VOLUME 10.1 fl (7.0-11.0); MONO # 0.5 (0.1-0.6); MONO % 8.9 % (1.0-6.0); RED CELL DISTRIBUTION WIDTH 15.5 % (11.5-14.5); WHITE BLOOD COUNT 5.9 10^3/ul (4.5-11.0)
[2017-01-11 06:50] LABS: ALB/GLOB RATIO 1.1 (1.1-1.8); BILIRUBIN,TOTAL 0.4 mg/dL (0.2-1.3); CALCIUM 8.9 mg/dL (8.4-10.5); POTASSIUM 5.2 mmol/L (3.6-5.0); TOTAL PROTEIN 5.9 g/dL (5.8-8.3)
[2017-01-11 07:06] VITALS: O2SAT 98
[2017-01-11] MEDS ORDERED: Sod Polystyrene Sulf 15 gm/60 ml Susp PO ONE (07:56)
--- NOTE | 2017-01-11 08:29 | PN ---
DATE: 01/11/2017 SUBJECTIVE: The patient has no complaints of any chest pain. No shortness of breath. No headaches or dizziness. PHYSICAL EXAMINATION: VITAL SIGNS: Temperature is 98.3, pulse of 84, blood pressure 112/76, respirations 18, O2 saturation is 98%, height 5 feet 4 inches, and weight is 183 pounds. GENERAL: The patient is lying in bed, flat, comfortable. HEENT: No oral lesion. Anicteric sclerae. Moist mucosa. NECK: No JVD, adenopathy, or thyromegaly. CARDIOVASCULAR: S1 and S2, regular. No murmurs, rubs, or gallops. LUNGS: Clear to auscultation bilaterally. No wheeze, rales, or rhonchi. ABDOMEN: Bowel sounds are positive, soft, nontender and nondistended. EXTREMITIES: No cyanosis, clubbing or edema. LABORATORY DATA: Creatinine is 1.4, potassium is 5.2, white count of 5.9, hemoglobin 9.0. Urine shows the protein is 10, creatinine is 71. ASSESSMENT: 1. Hyperkalemia. 2. Acute kidney injury. 3. Dyslipidemia. 4. Hypertension. PLAN: The patient is currently comfortable. The patient's creatinine continues to improve. The patient was taken off her IV fluids. The blood cultures have been negative. The patient had a C. diff, which was negative as well. The patient is off her CALLY inhibitors. We will give another dose of Kayexalate, which have improved the potassium. Follow up the patient's creatinine, should improve that to baseline. The patient should get outpatient repeat blood work done and to follow the potassium, hold the patient's CALLY inhibitor/ARB until the creatinine is back to baseline. The patient has anemia and may need further evaluation. We will order iron studies. The patient was on a heart healthy diet. We will sign off at this point, re-consult if needed. Jorge Heredia MD
[2017-01-11 09:16] LABS: IRON 59 ug/dL (45-180)
[2017-01-11] MEDS: Metoprolol Succinate 25 mg XL Tab PO SCH (10:07)
[2017-01-11] MEDS: cefTRIAXone 1 gm 1 GM/100 ML BAG IVPB SCH (10:07)
--- NOTE | 2017-01-11 11:26 | CP.PCM.PN ---
<EricaAdriano - Last Filed: 01/11/17 12:02> Subjective - Date & Time of Evaluation Date of Evaluation: 01/10/17 Time of Evaluation: 07:30 - Subjective Subjective: Patient seen and examined at bedside with family present. No acute events overnight were reported. Patient complains of pain in her legs bilaterally, productive cough of white to green sputum, and right shoulder pain. Patient denies chest pain, shortness of breath, abdominal pain, fever, chills, nausea, vomiting. Patient is to be evaluated by nephrology for SETH which shows sign of improvement. Objective - Vital Signs/Intake and Output Vital Signs (last 24 hours): Temp Pulse Resp BP Pulse Ox 98.2 F 84 18 112/76 98 01/11/17 06:00 01/11/17 10:07 01/11/17 06:00 01/11/17 10:07 01/11/17 06:00 Intake and Output: 01/11/17 01/11/17 06:59 18:59 Intake Total 950 Balance 950 - Medications Medications: Current Medications Acetaminophen (Tylenol 325mg Tab) 650 mg PO Q6H PRN PRN Reason: Fever >100.4 F Last Admin: 01/09/17 23:13 Dose: 650 mg Alprazolam (Xanax) 0.25 mg PO BID [facility] PRN Reason: Protocol Stop: 01/17/17 10:01 Last Admin: 01/11/17 10:06 Dose: 0.25 mg Amlodipine Besylate (Norvasc) 10 mg PO DAILY [facility] Last Admin: 01/11/17 10:06 Dose: 10 mg Atorvastatin Calcium (Lipitor) 10 mg PO DAILY [facility] Last Admin: 01/11/17 10:09 Dose: 10 mg Benzonatate (Tessalon Perles) 100 mg PO TID [facility] Last Admin: 01/11/17 10:07 Dose: 100 mg Clonidine HCl (Catapres) 0.1 mg PO BID [facility] Last Admin: 01/11/17 10:06 Dose: 0.1 mg Hydrochlorothiazide (Hydrodiuril) 25 mg PO DAILY [facility] Last Admin: 01/11/17 10:05 Dose: 25 mg Ceftriaxone Sodium (Rocephin 1 Gram Ivpb) 1 gm in 100 mls @ 100 mls/hr IVPB DAILY [facility] PRN Reason: Protocol Last Admin: 01/11/17 10:07 Dose: 100 mls/hr Memantine (Namenda) 10 mg PO DAILY [facility] Last Admin: 01/11/17 10:06 Dose: 10 mg Metoprolol Succinate (Toprol Xl) 25 mg PO DAILY [facility] Last Admin: 01/11/17 10:07 Dose: 25 mg Pantoprazole Sodium (Protonix Inj) 40 mg IVP DAILY [facility] Last Admin: 01/11/17 10:09 Dose: 40 mg - Labs Labs: 01/11/17 06:15 01/11/17 06:15 - Constitutional Appears: No Acute Distress - Head Exam Head Exam: ATRAUMATIC, NORMAL INSPECTION, NORMOCEPHALIC - Eye Exam Eye Exam: EOMI, PERRL Pupil Exam: PERRL - ENT Exam ENT Exam: Mucous Membranes Dry - Neck Exam Neck Exam: Full ROM - Respiratory Exam Respiratory Exam: Clear to Ausculation Bilateral, NORMAL BREATHING PATTERN. absent: Decreased Breath Sounds, Rales, Wheezes - Cardiovascular Exam Cardiovascular Exam: REGULAR RHYTHM, +S1, +S2. absent: Murmur - GI/Abdominal Exam GI & Abdominal Exam: Soft, Normal Bowel Sounds. absent: Tenderness - Extremities Exam Extremities Exam: Pedal Edema (trace bilateral ), Tenderness (anterior zuniga bilateral) - Back Exam Back Exam: NORMAL INSPECTION. absent: CVA tenderness (L), CVA tenderness (R) - Neurological Exam Neurological Exam: Alert, Awake, Oriented x3 - Psychiatric Exam Psychiatric exam: Normal Mood - Skin Skin Exam: Dry, Intact, Normal Color, Warm Additional comments: right knee with pressure bandage covering recent dx of cellulitis Assessment and Plan - Assessment and Plan (Free Text) Assessment: Patient is an 86 year old female with a past medical history of hypertension, hyperlipidemia, recent diagnosis of cellulitis of right knee, and paroxysmal atrial fibrillation who was admitted for possible community acquired pneumonia and SETH. Plan: 1. SETH - Patient Cr elevated above baseline - Likely secondary to medication, CALLY-inh, ARB in combination with recent antibiotic prescription for cellulitis - Hold CALLY-inh and avoid nephro insulting medications - Nephrology consulted, appreciate recs - Monitor UOP and renal function - IVF 2. Hyperkalemia - Likely secondary to medication - Kayexalate - Monitor with CMP 3. Hx of HTN - Holding CALLY-inh and ARB - Patient placed on clonidine and Norvasc for BP control 4. Hx of HLD - Continue statin Case and plan discussed and reviewed with attending <Yanelis Galloway - Last Filed: 01/12/17 14:44> Objective - Vital Signs/Intake and Output Vital Signs (last 24 hours): Temp Pulse Resp BP Pulse Ox 97.4 F L 80 18 114/62 98 01/11/17 12:00 01/11/17 14:00 01/11/17 12:00 01/11/17 12:00 01/11/17 06:00 - Labs Labs: 01/11/17 06:15 01/11/17 06:15 Attending/Attestation - Attestation I have personally seen and examined this patient.: Yes I have fully participated in the care of the patient.: Yes I have reviewed all pertinent clinical information, including history, physical exam and plan: Yes Notes (Text): 01/12/17 14:41 Patient was seen and examined with medical grade shoemaker. Agreed with resident assessment and plan. 86 year old female with a past medical history of hypertension, hyperlipidemia, recent diagnosis of cellulitis of right knee, and paroxysmal atrial fibrillation not on anticoagulation due to non compliance is admitted with acute on chronic renal renal failure, hyperkalemia due to pre renal azotemia in setting of CALLY and Bactrim.EKG is negative for hyperkalemic changes.We will continue IV fluid, will monitor BUN and creatinin, CALLY on hold. Patient is now agreeable to stay in the hospital. Management plan was discussed in detail with patient and daughter who is at bed side. Education was provided.
[2017-01-11 15:38] VITALS: BP 114/62; TEMP 97.4
--- NOTE | 2017-01-11 16:09 | CP.PCM.DIS ---
<KimjacksonNavdeepe - Last Filed: 01/11/17 16:03> Provider - Provider Date of Admission: 01/09/17 20:36 Attending physician: Yanelis Galloway MD Primary care physician: PMD: Dr. Brandon Higginbotham Consults: Cardiology: Dr. Camara, Dr. Lincoln Nephrology: Dr. Heredia Time Spent in preparation of Discharge (in minutes): 35 Hospital Course - Lab Results Lab Results: Micro Results 01/09/17 22:16 Stool C. difficile Antigen & Toxin A,B (M - Final Most Recent Lab Values WBC 5.9 10^3/ul (4.5-11.0) 01/11/17 06:15 RBC 3.83 10^6/uL (3.5-6.1) 01/11/17 06:15 Hgb 9.0 g/dL (12.0-16.0) L 01/11/17 06:15 Hct 29.2 % (36.0-48.0) L 01/11/17 06:15 MCV 76.2 fl (80.0-105.0) L 01/11/17 06:15 MCH 23.5 pg (25.0-35.0) L 01/11/17 06:15 MCHC 30.8 g/dl (31.0-37.0) L 01/11/17 06:15 RDW 15.5 % (11.5-14.5) H 01/11/17 06:15 Plt Count 289 10^3/uL (120.0-450.0) 01/11/17 06:15 MPV 10.1 fl (7.0-11.0) 01/11/17 06:15 Gran % 54.3 % (50.0-68.0) 01/11/17 06:15 Lymph % (Auto) 29.9 % (22.0-35.0) 01/11/17 06:15 Steele % (Auto) 8.9 % (1.0-6.0) H 01/11/17 06:15 Eos % (Auto) 6.7 % (1.5-5.0) H 01/11/17 06:15 Baso % (Auto) 0.2 % (0.0-3.0) 01/11/17 06:15 Gran # 3.18 (1.4-6.5) 01/11/17 06:15 Lymph # 1.8 (1.2-3.4) 01/11/17 06:15 Steele # 0.5 (0.1-0.6) 01/11/17 06:15 Eos # 0.4 (0.0-0.7) 01/11/17 06:15 Baso # 0.01 K/mm3 (0.0-2.0) 01/11/17 06:15 pO2 45 mm/Hg (30-55) 01/09/17 19:08 VBG pH 7.33 (7.32-7.43) 01/09/17 19:08 VBG pCO2 47.0 (40-60) 01/09/17 19:08 VBG HCO3 24.8 mmol/l (21-28) 01/09/17 19:08 VBG Total CO2 26.2 mmol.L (22-28) 01/09/17 19:08 VBG O2 Sat (Calc) 85.1 % (40-65) H 01/09/17 19:08 VBG Base Excess -1.5 mmol/L (0.0-2.0) L 01/09/17 19:08 VBG Potassium 5.8 mmol/L (3.6-5.2) H 01/09/17 19:08 Sodium 140.0 mmol/L (132-148) 01/09/17 19:08 Chloride 112.0 mmol/L (98-107) H 01/09/17 19:08 Glucose 109 mg/dl (65-105) H 01/09/17 19:08 Lactate 0.9 mmol/L (0.7-2.1) 01/09/17 19:08 FiO2 21.0 % 01/09/17 19:08 Sodium 142 mmol/L (132-148) 01/11/17 06:15 Potassium 5.2 mmol/L (3.6-5.0) H 01/11/17 06:15 Chloride 111 mmol/L (98-107) H 01/11/17 06:15 Carbon Dioxide 24 mmol/L (21-33) 01/11/17 06:15 Anion Gap 12 (10-20) 01/11/17 06:15 BUN 19 mg/dL (7-21) 01/11/17 06:15 Creatinine 1.4 mg/dL (0.7-1.2) H 01/11/17 06:15 Est GFR ( Amer) 43 01/11/17 06:15 Est GFR (Non-Af Amer) 35 01/11/17 06:15 Random Glucose 95 mg/dL (70-110) 01/11/17 06:15 Calcium 8.9 mg/dL (8.4-10.5) 01/11/17 06:15 Iron 59 ug/dL (45-180) 01/11/17 07:58 TIBC 217 ug/dL (265-497) L 01/11/17 07:58 % Saturation 27 % (20-55) 01/11/17 07:58 Ferritin 89.5 ng/mL 01/11/17 07:58 Total Bilirubin 0.4 mg/dL (0.2-1.3) 01/11/17 06:15 AST 25 U/L (14-36) 01/11/17 06:15 ALT 28 U/L (7-56) 01/11/17 06:15 Alkaline Phosphatase 59 U/L (38-126) 01/11/17 06:15 Total Protein 5.9 g/dL (5.8-8.3) 01/11/17 06:15 Albumin 3.0 g/dL (3.0-4.8) 01/11/17 06:15 Globulin 2.8 gm/dL 01/11/17 06:15 Albumin/Globulin Ratio 1.1 (1.1-1.8) 01/11/17 06:15 Venous Blood Potassium 5.8 mmol/L (3.6-5.2) H 01/09/17 19:08 Urine Color Yellow (YELLOW) 01/10/17 08:41 Urine Appearance Clear (CLEAR) 01/10/17 08:41 Urine pH 7.5 (4.7-8.0) 01/10/17 08:41 Ur Specific [place] 1.015 (1.005-1.035) 01/10/17 08:41 Urine Protein Negative mg/dL (<30 mg/dL) 01/10/17 08:41 Urine Glucose (UA) Negative mg/dL (NEGATIVE) 01/10/17 08:41 Urine Ketones Negative mg/dL (NEGATIVE) 01/10/17 08:41 Urine Blood Small (NEGATIVE) H 01/10/17 08:41 Urine Nitrate Negative (NEGATIVE) 01/10/17 08:41 Urine Bilirubin Negative (NEGATIVE) 01/10/17 08:41 Urine Urobilinogen 0.2 E.U./dL (<1 E.U./dL) 01/10/17 08:41 Ur Leukocyte Esterase Trace Marina/uL (NEGATIVE) H 01/10/17 08:41 Urine RBC 0 - 2 /hpf (0-2) 01/10/17 08:41 Urine WBC 5 - 10 /hpf (0-6) 01/10/17 08:41 Ur Epithelial Cells 0 - 2 /hpf (0-5) 01/10/17 08:41 Urine Bacteria Few (NEG) 01/10/17 08:41 Ur Random Creatinine 71 mg/dL 01/10/17 08:41 U Random Total Protein 10 mg/L 01/10/17 08:41 Influenza Typ A,B (EIA) Negative for flu a/b (NEGATIVE) 01/09/17 19:07 Ur L.pneumophila Ag Negative (NEGATIVE) 01/10/17 08:18 - Hospital Course Hospital Course: Patient is an 86 year old female with a past medical history of hypertension, hyperlipidemia, anemia, history of degenerative disc disease, history of atrial fibrillation who was admitted for SETH and suspected community acquired pneumonia. Nephrology, Dr. Jackson was consulted and evaluated the patient, making recommendations to hold the patient's CALLY-inh/ARB medication and to start on alternative BP medications for control of her hypertension. Patient was hydrated with IVF and given kayexalate for elevated potassium. Patient renal function improved upon hydration. On the morning of 01/11/2017 the patient was noted to have a 2 second pause on telemetry. Cardiology was consulted but unable to evaluate the patient due to patient being uncooperative. Patient wanted to sign out AMA. Patient was educated on the risks of leaving and was understanding. - Date & Time of H&P Date of H&P: 01/09/17 Time of H&P: 20:05 Discharge Exam - Head Exam Head Exam: ATRAUMATIC, NORMAL INSPECTION, NORMOCEPHALIC - Eye Exam Eye Exam: EOMI, PERRL - ENT Exam ENT Exam: Mucous Membranes Dry - Neck Exam Neck exam: Full Rom - Respiratory Exam Respiratory Exam: Clear to PA & Lateral, NORMAL BREATHING PATTERN - Cardiovascular Exam Cardiovascular Exam: Irregular Rhythm, +S1, +S2 - GI/Abdominal Exam GI & Abdominal Exam: Normal Bowel Sounds, Soft. absent: Tenderness - Extremities Exam Extremities exam: full ROM, pedal edema (trace) - Back Exam Back exam: NORMAL INSPECTION - Neurological Exam Neurological exam: Alert, Normal Gait, Oriented x3 - Psychiatric Exam Psychiatric exam: Normal Affect, Normal Mood - Skin Skin Exam: Dry, Intact, Normal Color, Warm Additional comments: notable pressure dressing on left knee, hx of cellulitis with treatment Discharge Plan - Follow Up Plan Condition: FAIR Disposition: AGAINST MEDICAL ADVICE Additional Instructions: 1. Follow up with your primary medical doctor with in one week 2. Please take your medications as instructed. Hold CALLY-inhibitor and hydrochlorothiazide. 3. Stay hydrated with appropriate oral intake of fluids and eat a heart healthy diet 4. Return to the emergency department if your symptoms worsen or return <Yanelis Galloway - Last Filed: 01/12/17 14:55> Provider - Provider Date of Admission: 01/09/17 20:36 Attending physician: Yanelis Galloway MD Hospital Course - Lab Results Lab Results: Micro Results 01/09/17 22:16 Stool C. difficile Antigen & Toxin A,B (M - Final Most Recent Lab Values WBC 5.9 10^3/ul (4.5-11.0) 01/11/17 06:15 RBC 3.83 10^6/uL (3.5-6.1) 01/11/17 06:15 Hgb 9.0 g/dL (12.0-16.0) L 01/11/17 06:15 Hct 29.2 % (36.0-48.0) L 01/11/17 06:15 MCV 76.2 fl (80.0-105.0) L 01/11/17 06:15 MCH 23.5 pg (25.0-35.0) L 01/11/17 06:15 MCHC 30.8 g/dl (31.0-37.0) L 01/11/17 06:15 RDW 15.5 % (11.5-14.5) H 01/11/17 06:15 Plt Count 289 10^3/uL (120.0-450.0) 01/11/17 06:15 MPV 10.1 fl (7.0-11.0) 01/11/17 06:15 Gran % 54.3 % (50.0-68.0) 01/11/17 06:15 Lymph % (Auto) 29.9 % (22.0-35.0) 01/11/17 06:15 Steele % (Auto) 8.9 % (1.0-6.0) H 01/11/17 06:15 Eos % (Auto) 6.7 % (1.5-5.0) H 01/11/17 06:15 Baso % (Auto) 0.2 % (0.0-3.0) 01/11/17 06:15 Gran # 3.18 (1.4-6.5) 01/11/17 06:15 Lymph # 1.8 (1.2-3.4) 01/11/17 06:15 Steele # 0.5 (0.1-0.6) 01/11/17 06:15 Eos # 0.4 (0.0-0.7) 01/11/17 06:15 Baso # 0.01 K/mm3 (0.0-2.0) 01/11/17 06:15 pO2 45 mm/Hg (30-55) 01/09/17 19:08 VBG pH 7.33 (7.32-7.43) 01/09/17 19:08 VBG pCO2 47.0 (40-60) 01/09/17 19:08 VBG HCO3 24.8 mmol/l (21-28) 01/09/17 19:08 VBG Total CO2 26.2 mmol.L (22-28) 01/09/17 19:08 VBG O2 Sat (Calc) 85.1 % (40-65) H 01/09/17 19:08 VBG Base Excess -1.5 mmol/L (0.0-2.0) L 01/09/17 19:08 VBG Potassium 5.8 mmol/L (3.6-5.2) H 01/09/17 19:08 Sodium 140.0 mmol/L (132-148) 01/09/17 19:08 Chloride 112.0 mmol/L (98-107) H 01/09/17 19:08 Glucose 109 mg/dl (65-105) H 01/09/17 19:08 Lactate 0.9 mmol/L (0.7-2.1) 01/09/17 19:08 FiO2 21.0 % 01/09/17 19:08 Sodium 142 mmol/L (132-148) 01/11/17 06:15 Potassium 5.2 mmol/L (3.6-5.0) H 01/11/17 06:15 Chloride 111 mmol/L (98-107) H 01/11/17 06:15 Carbon Dioxide 24 mmol/L (21-33) 01/11/17 06:15 Anion Gap 12 (10-20) 01/11/17 06:15 BUN 19 mg/dL (7-21) 01/11/17 06:15 Creatinine 1.4 mg/dL (0.7-1.2) H 01/11/17 06:15 Est GFR ( Amer) 43 01/11/17 06:15 Est GFR (Non-Af Amer) 35 01/11/17 06:15 Random Glucose 95 mg/dL (70-110) 01/11/17 06:15 Calcium 8.9 mg/dL (8.4-10.5) 01/11/17 06:15 Iron 59 ug/dL (45-180) 01/11/17 07:58 TIBC 217 ug/dL (265-497) L 01/11/17 07:58 % Saturation 27 % (20-55) 01/11/17 07:58 Ferritin 89.5 ng/mL 01/11/17 07:58 Total Bilirubin 0.4 mg/dL (0.2-1.3) 01/11/17 06:15 AST 25 U/L (14-36) 01/11/17 06:15 ALT 28 U/L (7-56) 01/11/17 06:15 Alkaline Phosphatase 59 U/L (38-126) 01/11/17 06:15 Total Protein 5.9 g/dL (5.8-8.3) 01/11/17 06:15 Albumin 3.0 g/dL (3.0-4.8) 01/11/17 06:15 Globulin 2.8 gm/dL 01/11/17 06:15 Albumin/Globulin Ratio 1.1 (1.1-1.8) 01/11/17 06:15 Procalcitonin < 0.05 NG/ML (0.19-0.49) L 01/11/17 07:30 Venous Blood Potassium 5.8 mmol/L (3.6-5.2) H 01/09/17 19:08 Urine Color Yellow (YELLOW) 01/10/17 08:41 Urine Appearance Clear (CLEAR) 01/10/17 08:41 Urine pH 7.5 (4.7-8.0) 01/10/17 08:41 Ur Specific [place] 1.015 (1.005-1.035) 01/10/17 08:41 Urine Protein Negative mg/dL (<30 mg/dL) 01/10/17 08:41 Urine Glucose (UA) Negative mg/dL (NEGATIVE) 01/10/17 08:41 Urine Ketones Negative mg/dL (NEGATIVE) 01/10/17 08:41 Urine Blood Small (NEGATIVE) H 01/10/17 08:41 Urine Nitrate Negative (NEGATIVE) 01/10/17 08:41 Urine Bilirubin Negative (NEGATIVE) 01/10/17 08:41 Urine Urobilinogen 0.2 E.U./dL (<1 E.U./dL) 01/10/17 08:41 Ur Leukocyte Esterase Trace Marina/uL (NEGATIVE) H 01/10/17 08:41 Urine RBC 0 - 2 /hpf (0-2) 01/10/17 08:41 Urine WBC 5 - 10 /hpf (0-6) 01/10/17 08:41 Ur Epithelial Cells 0 - 2 /hpf (0-5) 01/10/17 08:41 Urine Bacteria Few (NEG) 01/10/17 08:41 Ur Random Creatinine 71 mg/dL 01/10/17 08:41 U Random Total Protein 10 mg/L 01/10/17 08:41 Influenza Typ A,B (EIA) Negative for flu a/b (NEGATIVE) 01/09/17 19:07 Ur L.pneumophila Ag Negative (NEGATIVE) 01/10/17 08:18 Attending/Attestation - Attestation I have personally seen and examined this patient.: Yes I have fully participated in the care of the patient.: Yes I have reviewed all pertinent clinical information, including history, physical exam and plan: Yes Notes (Text): 01/12/17 14:45 86 year old female with a past medical history of hypertension, hyperlipidemia, recent diagnosis of cellulitis of right knee, and paroxysmal atrial fibrillation not on anticoagulation due to non compliance was admitted with acute on chronic renal renal failure, hyperkalemia due to pre renal azotemia in setting of CALLY and Bactrim.EKG is negative for hyperkalemic changes.BUN and creatinin has improved with IV hydration, however patient patient had episode of sinus pause on telemetry floor this morning, refused to stay in the hospital for telemetry monitoring and for cardiology evaluation. She has signed out AMA.Daughter was at bed side. Prognosis is guarded. 01/12/17 14:54
[2017-01-11 17:15] VITALS: PULSE 80
--- NOTE | 2017-01-11 20:21 | CARD ---
APPROVED REPORT EKG Measurement Heart [id number] <Conclusion> Atrial fibrillation Abnormal ECG
--- NOTE | 2017-01-11 20:42 | CARD ---
APPROVED REPORT EKG Measurement Heart [id number] <Conclusion> Normal sinus rhythm with sinus arrhythmia Normal ECG
--- NOTE | 2017-01-12 06:19 | CON ---
DATE: 01/11/2017 CARDIOLOGY CONSULTATION REASON FOR CONSULTATION: Paroxysmal atrial fibrillation, 2.89-second pause. BRIEF CLINICAL HISTORY: This is an 86-year-old female with past medical history significant for possible atrial fibrillation as per daughter diagnosed 4 years ago, but not on anticoagulation because of the patient's choice, who came in with upper respiratory tract infection. The patient, on admission, was in normal sinus and she was in AFib. This morning at 7 a.m., the patient had 2.89-second pause, so Cardiology consult was called. The patient denies any chest pain, shortness of breath, or any palpitations. The patient was very emphatic to going home, and yesterday, she wanted to sign out and today also she wanted to sign out. I spoke to the daughter that the patient needs to be stayed in the telemetry to see whether the patient has sick sinus syndrome because the patient is on clonidine as well as the patient is on metoprolol succinate 25 mg daily. The patient also has on admission normal sinus, but later on the patient was in AFib with rapid ventricular rate and later on has slow rate with longest being in the 2.89-second pause. Denies any dizziness. Denies any chest pain. Denies any shortness of breath. PAST MEDICAL HISTORY: Significant for hypertension, hyperlipidemia, and history of atrial fibrillation as per daughter. SOCIAL HISTORY: Denies smoking. Denies any history of alcohol abuse. CURRENT MEDICATIONS: The patient is taking Namenda, Norvasc, hydrochlorothiazide, Zestril, Xanax, and the patient here in the hospital was on clonidine 0.1 mg as well as metoprolol succinate 25 mg daily. REVIEW OF SYSTEMS: As per HPI. PHYSICAL EXAMINATION VITAL SIGNS: As follows: Temperature afebrile, heart rate 80, and blood pressure 114/62. HEENT: PERRLA. Extraocular muscles are intact. NECK: Supple. No carotid bruits. No thyromegaly. CHEST: Clear to auscultation. HEART: S1 and S2 regular. ABDOMEN: Soft. EXTREMITIES: Clubbing and cyanosis negative. LABORATORY DATA: EKG on admission shows normal sinus. Second EKG today AFib with a rate of 99. Telemetry strip at 7:18 a.m. shows 2.85 seconds, dated 01/11/2017. Blood workup as follows: WBC 5.9, hemoglobin 9, hematocrit 29.2, and platelet count 289. Chemistry shows sodium , potassium 5.2, chloride 111, carbon dioxide 24, anion gap of 12, BUN 19, and creatinine 1.4. IMPRESSION: Renal insufficiency, paroxysmal atrial fibrillation, and bradycardia, rule out sick sinus syndrome. Renal insufficiency baseline. Bradycardia, possibly multifactorial secondary to metoprolol as well as the patient is on clonidine. History of paroxysmal atrial fibrillation, needs to rule out sick sinus syndrome. Discussed with the patient that the patient needs to stay. We will hold the beta-blockers and see the response, where the patient still after the washout period of the beta-valorie still remains slow rate, consider pacemaker evaluation, but the patient wanted to go home today and was very much adamant. I spoke to the daughter, though she understood, but it looks like the patient may sign out tonight. For now, we will hold the beta-valorie, continue to monitor on telemetry, and further recommendation will depend on the hospital course. The patient's initial admission was for community-acquired pneumonia. We will follow with you. Thank you Dr. Galloway for providing us the opportunity in taking care of the patient, Real Montoya. Yanelis Lincoln MD
== END 2017-01-11 17:08 | disposition left against medical advice (07) | DRG 194 ==
LOC: ED 18:03 → ERH 20:36 → 2RNO 22:19
PROVIDERS: ADMIT Internal Medicine; ATTEND Internal Medicine
DX: J18.9 Pneumonia, unspecified organism (principal); L03.90 Cellulitis, unspecified; N17.9 Acute kidney failure, unspecified; E87.5 Hyperkalemia; F03.90 Unspecified dementia, unspecified severity, without behavioral disturbance, psychotic disturbance, mood disturbance, and anxiety; I48.0 Paroxysmal atrial fibrillation; E78.5 Hyperlipidemia, unspecified; I10 Essential (primary) hypertension; Z79.899 Other long term (current) drug therapy; Z87.01 Personal history of pneumonia (recurrent)